=== PATIENT | female | born 1955 | race Caucasian/White ===

== ENCOUNTER 2024-05-11 16:18 | Observation (INO) | payer MEDICARE ==
[~2024-05-11] VITALS: Ht 154.9 cm; Wt 56.6 kg
[2024-05-11] VITALS (14 sets, daily range): BP systolic 104–186; BP diastolic 44–116
[2024-05-11 18:29] LABS: EOS% 2.1 % (0-8); HEMATOCRIT 38.6 % (37.0-47.0); HEMOGLOBIN 12.1 g/dl (12.0-16.0); IMMATURE GRANULOCYTES 0.2 % (0.0-5.0); LYMPH% 26.2 % (15-41); MEAN CELL VOLUME 96.3 fL CALC (80.0-100.0); MEAN CORPUSCULAR HGB 30.2 pG CALC (26.0-32.0); MEAN CORPUSCULAR HGB CONC 31.3 g/dL CAL (32.0-36.0); NEUT# 3.21 thou/uL (2.00-7.15); NEUT% 61.5 % (42-76); RED BLOOD COUNT 4.01 mill/uL (4.20-5.60); RED CELL DISTRI WIDTH 13.2 % (11.5-15.5)
[2024-05-11 18:30] LABS: URINE BILIRUBIN - DIPSTICK Negative (NEGATIVE); URINE BLOOD DIPSTICK Negative (NEGATIVE); URINE COLOR Yellow; URINE GLUCOSE - DIPSTICK Negative (NEGATIVE); URINE KETONE Trace mg/dL (NEGATIVE); URINE LEUK ESTERASE Negative (NEGATIVE); URINE NITRITE - DIPSTICK Negative (Negative); URINE PROTEIN - DIPSTICK Negative (NEG-TRACE); URINE SPECIFIC GRAVITY 1.025; URINE UROBILINOGEN - DIPSTICK 0.2 E.U./dL (0.2)
[2024-05-11 18:47] LABS: BILIRUBIN, TOTAL 0.4 mg/dL (0.02-1.3); CREATININE 0.8 mg/dL (0.5-1.0); POTASSIUM 4.4 mmol/l (3.5-5.1); TOTAL PROTEIN 6.4 g/dL (6.3-8.2)
[2024-05-11] MEDS ORDERED: DEXAMETHASONE SOD. PHOSPHATE 10 MG/ML VIAL IV ONE (19:50)
[2024-05-11] MEDS ORDERED: ACETAMINOPHEN 325 MG/TAB PO ONE (20:50)
[2024-05-11] MEDS ORDERED: ACETAMINOPHEN 325 MG/TAB PO PRN ×2 (21:30→23:25)
[2024-05-11] MEDS ORDERED: MAGNESIUM HYDROXIDE 30 ML UDC PO PRN (23:25)
[2024-05-12] MEDS ORDERED: SINEMET 25/1001 TA2 PO ×2 (00:45)
[2024-05-12] MEDS ORDERED: FLEXERIL5 M1 PO (00:46)
[2024-05-12] MEDS ORDERED: [UNRECOGNIZED DRUG - OTHER] XX (00:50)
[2024-05-12] MEDS ORDERED: L-THYROXINE SODIUM PO (00:51)
[2024-05-12] MEDS ORDERED: VITAMIN C 500 M1 TAB PO (00:58)
[2024-05-12] MEDS ORDERED: VITAMIN D-32000 UNI1 PO (00:58)
[2024-05-12] MEDS ORDERED: BUSPAR15 M1 PO (00:59)
[2024-05-12] MEDS ORDERED: DEXAMETHASONE SOD. PHOSPHATE 10 MG/ML VIAL IV SCH (03:00)
[2024-05-12 04:33] VITALS: BP 141/79
[2024-05-12 05:45] LABS: BASO% 0.3 % (0-3); HEMATOCRIT 40.5 % (37.0-47.0); HEMOGLOBIN 13.3 g/dl (12.0-16.0); LYMPH% 15.4 % (15-41); MEAN CELL VOLUME 93.8 fL CALC (80.0-100.0); MEAN CORPUSCULAR HGB 30.8 pG CALC (26.0-32.0); MEAN CORPUSCULAR HGB CONC 32.8 g/dL CAL (32.0-36.0); MONO% 1.1 % (2-13); NEUT# 2.91 thou/uL (2.00-7.15); NEUT% 83.2 % (42-76); RED BLOOD COUNT 4.32 mill/uL (4.20-5.60); RED CELL DISTRI WIDTH 13.1 % (11.5-15.5)
[2024-05-12 05:52] LABS: ALBUMIN 4.3 g/dL (3.2-5.0); BILIRUBIN, TOTAL 0.4 mg/dL (0.02-1.3); CREATININE 0.8 mg/dL (0.5-1.0); MAGNESIUM 2.2 mg/dL (1.6-2.3); POTASSIUM 4.5 mmol/l (3.5-5.1); TOTAL PROTEIN 6.7 g/dL (6.3-8.2)
[2024-05-12 07:09] VITALS: BP 158/77
[2024-05-12 08:01] VITALS: BP 158/77
[2024-05-12] MEDS ORDERED: CARBIDOPA/LEVODOPA 25/100 MG IR 1 COMBO/TAB PO SCH ×2 (12:00→18:00)
[2024-05-12] MEDS ORDERED: busPIRone HCL 5 MG/TAB PO SCH (12:00)
[2024-05-12 16:56] VITALS: BP 180/68
[2024-05-12 18:30] VITALS: BP 166/80
[2024-05-12] MEDS ORDERED: CARBIDOPA LEVODOPA PO SCH (21:00)
[2024-05-13 04:00] VITALS: BP 154/84
[2024-05-13 04:27] VITALS: BP 154/84
[2024-05-13 05:29] LABS: HEMATOCRIT 40.3 % (37.0-47.0); HEMOGLOBIN 12.7 g/dl (12.0-16.0); IMMATURE GRANULOCYTES 0.4 % (0.0-5.0); LYMPH% 6.1 % (15-41); MEAN CORPUSCULAR HGB 30.2 pG CALC (26.0-32.0); MEAN CORPUSCULAR HGB CONC 31.5 g/dL CAL (32.0-36.0); MONO% 1.5 % (2-13); NEUT# 10.38 thou/uL (2.00-7.15); RED BLOOD COUNT 4.2 mill/uL (4.20-5.60); RED CELL DISTRI WIDTH 13.5 % (11.5-15.5)
[2024-05-13 05:49] LABS: ALBUMIN 4.1 g/dL (3.2-5.0); BILIRUBIN, TOTAL 0.5 mg/dL (0.02-1.3); CREATININE 0.7 mg/dL (0.5-1.0); MAGNESIUM 2.3 mg/dL (1.6-2.3); POTASSIUM 4.4 mmol/l (3.5-5.1); TOTAL PROTEIN 6.7 g/dL (6.3-8.2)
[2024-05-13] MEDS ORDERED: LEVOTHYROXINE SODIUM 25 MCG/TAB PO SCH (06:00)
[2024-05-13] MEDS ORDERED: CARBIDOPA/LEVODOPA 25/100 MG IR 1 COMBO/TAB PO SCH (06:00)
[2024-05-13 07:13] VITALS: BP 144/78
[2024-05-13] MEDS ORDERED: CYCLOBENZAPRINE HCL 5 MG TAB PO SCH (09:00)
[2024-05-13] MEDS ORDERED: PREDNISONE10 MG PO (12:03)
== END 2024-05-13 14:03 | disposition home or self-care (01) ==
LOC: ED 16:18 → ED-I 19:40 → ED 20:53 → MS2 20:54
PROVIDERS: Family Medicine; Nurse Practitioner Family; ADMIT Internal Medicine; ATTEND Internal Medicine
DX: R15.9 Full incontinence of feces (principal); M48.56XD Collapsed vertebra, not elsewhere classified, lumbar region, subsequent encounter for fracture with routine healing; G20.A1 Parkinson's disease without dyskinesia, without mention of fluctuations; M41.9 Scoliosis, unspecified; F41.9 Anxiety disorder, unspecified; E03.9 Hypothyroidism, unspecified; Z98.1 Arthrodesis status
CPT/HCPCS: G0378; J1100

== ENCOUNTER 2024-06-24 13:27 | Emergency (ER) | payer MEDICARE ==
[~2024-06-24] VITALS: Ht 154.9 cm; Wt 52.0 kg
[2024-06-24] VITALS (9 sets, daily range): BP systolic 67–195; BP diastolic 53–133
[~2024-06-24 13:27] MED LIST: BUSPAR15 M1 PO; FLEXERIL5 M1 PO; L-THYROXINE SODIUM PO; PREDNISONE10 MG PO; SINEMET 25/1001 TA2 PO; VITAMIN C 500 M1 TAB PO; VITAMIN D-32000 UNI1 PO; [UNRECOGNIZED DRUG - OTHER] XX
== END 2024-06-24 14:56 | disposition home or self-care (01) ==
LOC: ED 13:27
DX: S70.12XA Contusion of left thigh, initial encounter (principal); G20.A1 Parkinson's disease without dyskinesia, without mention of fluctuations; F41.9 Anxiety disorder, unspecified; E03.9 Hypothyroidism, unspecified; W19.XXXA Unspecified fall, initial encounter; Y92.009 Unspecified place in unspecified non-institutional (private) residence as the place of occurrence of the external cause; Z91.81 History of falling; Z87.81 Personal history of (healed) traumatic fracture

== ENCOUNTER 2024-08-05 18:00 | Emergency (ER) | payer MEDICARE ==
[~2024-08-05] VITALS: Ht 154.9 cm; Wt 58.0 kg
[2024-08-05 21:18] VITALS: BP 158/78
== END 2024-08-05 21:30 | disposition home or self-care (01) ==
LOC: ED 18:00
DX: S00.03XA Contusion of scalp, initial encounter (principal); G20.A1 Parkinson's disease without dyskinesia, without mention of fluctuations; F41.9 Anxiety disorder, unspecified; E03.9 Hypothyroidism, unspecified; W19.XXXA Unspecified fall, initial encounter; Y92.009 Unspecified place in unspecified non-institutional (private) residence as the place of occurrence of the external cause; Z91.81 History of falling